=== PATIENT | male | born 1940 | race Caucasian/White ===

== ENCOUNTER 2020-01-28 18:29 | Inpatient (IN) | payer MEDICARE, OTHER ==
[~2020-01-28] VITALS: Ht 175.3 cm; Wt 87.6 kg
--- NOTE | 2020-01-28 18:36 | NUR ---
[id number]
--- NOTE | 2020-01-28 19:12 | NUR ---
Late entry due to pt care. Pt states he would like to wait in his daughters car with her and requests that he be called when his room is ready.
[2020-01-28 19:28] LABS: MICROSCOPIC INDICATED
[2020-01-28 19:33] LABS: CULTURE INDICATED? YES
[2020-01-28 20:31] LABS: INTERNATIONAL NORMALIZED RATIO 1.04 (0.93-1.1)
[2020-01-28 20:32] LABS: ALBUMIN 3.2 g/dL (3.4-5.0); ANION GAP 8 mmol/L (5-15); CALCIUM 9.7 mg/dL (8.5-10.1); CHLORIDE 105 mmol/L (98-107)
[2020-01-28 20:36] LABS: MEAN CORPUSCULAR HEMOGLOBIN 34.4 pg (27.5-34.5); MEAN CORPUSCULAR HGB CONC 34.5 g/dL (33.2-36.2); MEAN CORPUSCULAR VOLUME 99.7 fL (81-97); MEAN PLATELET VOLUME 9.1 fL (7.4-10.4); PLATELET COUNT 315 x10^3/uL (130-400); RED BLOOD COUNT 4.13 x10^6/uL (4.38-5.82); RED CELL DISTRIBUTION WIDTH 16.7 % (9.4-14.8)
[2020-01-28 20:45] LABS: ALANINE AMINOTRANSFERASE 182 U/L (12-78); ALKALINE PHOSPHATASE 723 U/L (45-117)
[2020-01-28 21:04] LABS: CREATININE 0.92 mg/dL (0.7-1.3); TOTAL PROTEIN 6.9 g/dL (6.4-8.2)
[2020-01-28 21:12] LABS: BILIRUBIN,TOTAL 23.5 mg/dL (0.2-1.0)
[2020-01-28 21:14] LABS: MD YES
[2020-01-28 21:16] LABS: ANISOCYTOSIS 1+; EOS#(MANUAL) 0.06 x10^3/uL (0.0-0.4); EOS% (MANUAL) 1 % (1-7); LYMPH#(MANUAL) 1.65 x10^3/uL (1-3.4); LYMPHS% (MANUAL) 27 % (22-44); MONOS#(MANUAL) 0.55 x10^3/uL (0.3-2.7); MONOS% (MANUAL) 9 % (2-9); REACTIVE LYMPHS # (MANUAL) 0.49 x10^3/uL (0-0); SEG#(MANUAL) 3.36 x10^3/uL (1.8-6.8); SEGS% (MANUAL) 55 % (42-75)
--- NOTE | 2020-01-28 21:16 | NUR ---
Patient saw his PCP (Duran) today. He was told there is something wrong with his kidneys. Patient jaundice since Tuesday. Denies N/V/D and ABD pain. A&Ox4. Family member at bedside. NAD. Placed on NIBP and pulse ox. Will continue to monitor.
[2020-01-28 21:17] LABS: TARGET CELLS 1+
[2020-01-28 21:19] LABS: <PLATELET ESTIMATE> ADEQUATE; REACTIVE LYMPHS % (MANUAL) 8 % (0-0)
[2020-01-28] MEDS ORDERED: SIMV20TA19 PO (21:28)
[2020-01-28] MEDS ORDERED: AMLO-150 PO (21:28)
[2020-01-28] MEDS ORDERED: OMEP-110 PO (21:28)
[2020-01-28] MEDS ORDERED: ALLO300T PO (21:28)
[2020-01-28] MEDS ORDERED: LISI30TA4 PO (21:28)
--- NOTE | 2020-01-28 21:33 | NUR ---
Patient to CT.
[2020-01-28] MEDS ORDERED: OMNIPAQUE 350 MG/ML, 100ML BOTTLE ONE (21:45)
--- NOTE | 2020-01-28 21:46 | NUR ---
Patient back from CT. IV started in CT by stress test technician.
[2020-01-28] MEDS ORDERED: SODIUM CHLORIDE 0.9% 1,000 ML IV ONE (22:49)
--- NOTE | 2020-01-28 22:49 | NUR ---
PT RESTING ON GURNEY WITH FAMILY AT BEDSIDE. PT AWARE HE IS TO BE ADMITTED. AWAITING ORDER AND BED PLACEMENT.
[2020-01-29] MEDS ORDERED: D5%-0.45NACL+KCL 20MEQ 1,000 ML IV SCH (00:40)
[2020-01-29] MEDS ORDERED: PROMETHAZINE 25 MG/ML, 1ML IM PRN (01:00)
[2020-01-29] MEDS ORDERED: ONDANSETRON 2MG/ML, 2ML IVPush PRN (01:00)
[2020-01-29] MEDS ORDERED: OXYcodone IR 5MG TABLET PO PRN ×2 (01:00→08:00)
[2020-01-29] MEDS ORDERED: AMPICILLIN/SULBACTAM 3 GM in SODIUM CHLORIDE 0.9% 100 ML IV SCH (01:00)
[2020-01-29] MEDS ORDERED: BISACODYL 10 MG SUPP PR PRN (01:00)
[2020-01-29] MEDS ORDERED: DOCUSATE 100 MG CAPSULE PO PRN (01:00)
[2020-01-29] MEDS ORDERED: POLYETHYLENE GLYCOL 17 GM PACKET PO PRN (01:00)
[2020-01-29] MEDS: ENOXAPARIN 40 MG/0.4 ML SQ SCH ×2 (03:19→22:10)
[2020-01-29 04:44] LABS: CHLORIDE 106 mmol/L (98-107)
[2020-01-29 04:46] LABS: MEAN CORPUSCULAR HEMOGLOBIN 33.7 pg (27.5-34.5); MEAN PLATELET VOLUME 9.7 fL (7.4-10.4); PLATELET COUNT 272 x10^3/uL (130-400); RED BLOOD COUNT 3.79 x10^6/uL (4.38-5.82); RED CELL DISTRIBUTION WIDTH 16.3 % (9.4-14.8)
[2020-01-29 04:51] LABS: ALANINE AMINOTRANSFERASE 141 U/L (12-78); ALBUMIN 2.7 g/dL (3.4-5.0); ALKALINE PHOSPHATASE 627 U/L (45-117); ANION GAP 9 mmol/L (5-15); CALCIUM 9.1 mg/dL (8.5-10.1)
[2020-01-29 04:56] LABS: CREATININE 0.81 mg/dL (0.7-1.3); TOTAL PROTEIN 5.8 g/dL (6.4-8.2)
[2020-01-29 04:57] LABS: BILIRUBIN,TOTAL 24.5 mg/dL (0.2-1.0)
[2020-01-29 05:48] VITALS: BP 155/80
[2020-01-29 05:57] LABS: MD YES
[2020-01-29 06:00] LABS: ANISOCYTOSIS 1+; BASOS#(MANUAL) 0.11 x10^3/uL (0-0.1); BASOS% (MANUAL) 2 % (0-1); EOS#(MANUAL) 0.05 x10^3/uL (0.0-0.4); EOS% (MANUAL) 1 % (1-7); LYMPH#(MANUAL) 1.48 x10^3/uL (1-3.4); LYMPHS% (MANUAL) 28 % (22-44); MONOS#(MANUAL) 0.37 x10^3/uL (0.3-2.7); MONOS% (MANUAL) 7 % (2-9); SEG#(MANUAL) 3.29 x10^3/uL (1.8-6.8); SEGS% (MANUAL) 62 % (42-75); TARGET CELLS 1+
[2020-01-29 06:01] LABS: <PLATELET ESTIMATE> ADEQUATE; <PLT MORPHOLOGY> NORMAL PLT MORPH; OVALOCYTES 1+
[2020-01-29] MEDS ORDERED: ACETAMINOPHEN 325 MG TABLET PO PRN (08:00)
[2020-01-29] MEDS ORDERED: POTASSIUM CHLORIDE 20 MEQ TAB.ER.PRT PO ONE (08:00)
[2020-01-29] MEDS: LACTOBACILLUS CHEW TABLET PO SCH ×3 (08:41→22:10)
[2020-01-29] MEDS: OMEPRAZOLE 20 MG CAPSULE.DR PO SCH (08:41)
[2020-01-29] MEDS: ALLOPURINOL 300 MG TABLET PO SCH (08:41)
[2020-01-29] MEDS: SODIUM CHLORIDE 0.9% 1,000 ML IV SCH ×2 (08:42→22:17)
[2020-01-29 08:45] VITALS: BP 155/80
[2020-01-29] MEDS ORDERED: LISINOPRIL 10 MG TABLET PO SCH (09:00)
[2020-01-29 12:56] VITALS: BP 154/78
[2020-01-29 19:00] VITALS: BP 166/84
[2020-01-30 02:31] VITALS: BP 170/85
[2020-01-30 05:12] LABS: MEAN CORPUSCULAR HEMOGLOBIN 33.6 pg (27.5-34.5); MEAN CORPUSCULAR HGB CONC 33.8 g/dL (33.2-36.2); MEAN CORPUSCULAR VOLUME 99.5 fL (81-97); MEAN PLATELET VOLUME 9.2 fL (7.4-10.4); PLATELET COUNT 288 x10^3/uL (130-400); RED BLOOD COUNT 3.82 x10^6/uL (4.38-5.82); RED CELL DISTRIBUTION WIDTH 16.8 % (9.4-14.8)
[2020-01-30 05:18] LABS: ALANINE AMINOTRANSFERASE 133 U/L (12-78); ALBUMIN 2.4 g/dL (3.4-5.0); ANION GAP 7 mmol/L (5-15); CALCIUM 8.6 mg/dL (8.5-10.1); CHLORIDE 109 mmol/L (98-107)
[2020-01-30 05:19] LABS: CREATININE 0.87 mg/dL (0.7-1.3)
[2020-01-30 05:28] LABS: ALKALINE PHOSPHATASE 638 U/L (45-117)
[2020-01-30 05:30] LABS: BILIRUBIN,TOTAL 23.4 mg/dL (0.2-1.0)
[2020-01-30 05:44] LABS: MD YES
[2020-01-30 05:46] LABS: BASOS#(MANUAL) 0.06 x10^3/uL (0-0.1); BASOS% (MANUAL) 1 % (0-1); EOS#(MANUAL) 0.24 x10^3/uL (0.0-0.4); EOS% (MANUAL) 4 % (1-7); LYMPH#(MANUAL) 1.04 x10^3/uL (1-3.4); LYMPHS% (MANUAL) 17 % (22-44); MONOS#(MANUAL) 0.67 x10^3/uL (0.3-2.7); MONOS% (MANUAL) 11 % (2-9); SEG#(MANUAL) 4.09 x10^3/uL (1.8-6.8); SEGS% (MANUAL) 67 % (42-75)
[2020-01-30 05:48] LABS: ANISOCYTOSIS 1+
[2020-01-30 05:49] LABS: <PLATELET ESTIMATE> ADEQUATE; <PLT MORPHOLOGY> NORMAL PLT MORPH; OVALOCYTES 1+; TARGET CELLS 2+
[2020-01-30 05:49] LABS: TOTAL PROTEIN 5.4 g/dL (6.4-8.2)
[2020-01-30] MEDS ORDERED: MIDAZOLAM 1 MG/ML, 2ML ONE (07:53)
[2020-01-30] MEDS ORDERED: PROPOFOL 10 MG/ML, 50ML ONE (08:25)
[2020-01-30] MEDS ORDERED: CEFOTETAN 2 GM ONE (08:25)
[2020-01-30] MEDS ORDERED: PHENYLEPHRINE 10 MG/ML ONE (08:25)
[2020-01-30] MEDS ORDERED: ROCURONIUM 10MG/ML,5ML ONE (08:50)
[2020-01-30] MEDS ORDERED: DEXAMETHASONE 4 MG/ML, 1ML ONE (08:50)
[2020-01-30] MEDS ORDERED: SUCCINYLCHOLINE 20 MG/ML, 10ML ONE (08:50)
[2020-01-30] MEDS ORDERED: GLYCOPYRROLATE 0.2MG/1ML, 5ML ONE (08:50)
[2020-01-30] MEDS ORDERED: ONDANSETRON 2MG/ML, 2ML ONE (08:50)
[2020-01-30] MEDS ORDERED: PROPOFOL 10 MG/ML, 20ML ONE (08:50)
[2020-01-30] MEDS ORDERED: PROMETHAZINE 25 MG/ML, 1ML IV PRN (09:00)
[2020-01-30] MEDS ORDERED: MORPHINE SULFATE 4 MG/ML, 1ML IVPush PRN (09:00)
[2020-01-30] MEDS ORDERED: FENTANYL PF 100 MCG/2ML IV PRN (09:00)
[2020-01-30] MEDS ORDERED: MEPERIDINE/PF 25MG/ML,1ML IVPush PRN (09:00)
[2020-01-30] MEDS ORDERED: CEFOTETAN PMX 2GM/50ML 50 ML ONE (09:02)
[2020-01-30 10:35] VITALS: BP 139/78
[2020-01-30] MEDS: OMEPRAZOLE 20 MG CAPSULE.DR PO SCH (12:12)
[2020-01-30] MEDS: ALLOPURINOL 300 MG TABLET PO SCH (12:12)
[2020-01-30] MEDS: LACTOBACILLUS CHEW TABLET PO SCH ×3 (12:12→20:03)
[2020-01-30] MEDS: CEFTRIAXONE PMX 2GM/50ML 50 ML IVPB SCH (12:14)
[2020-01-30 13:58] VITALS: BP 132/72
[2020-01-30 19:43] VITALS: BP 166/86
[2020-01-30] MEDS: SODIUM CHLORIDE 0.9% 1,000 ML IV SCH (19:50)
[2020-01-30] MEDS: LISINOPRIL 10 MG TABLET PO SCH (20:02)
[2020-01-30] MEDS: AMLODIPINE 2.5 MG TABLET PO SCH (20:03)
[2020-01-31 02:00] VITALS: BP 155/74
[2020-01-31 04:53] LABS: MEAN CORPUSCULAR HEMOGLOBIN 33.6 pg (27.5-34.5); MEAN CORPUSCULAR HGB CONC 33.6 g/dL (33.2-36.2); MEAN PLATELET VOLUME 9.3 fL (7.4-10.4); PLATELET COUNT 310 x10^3/uL (130-400); RED BLOOD COUNT 3.88 x10^6/uL (4.38-5.82); RED CELL DISTRIBUTION WIDTH 16.8 % (9.4-14.8)
[2020-01-31 05:02] LABS: ALBUMIN 2.5 g/dL (3.4-5.0); ANION GAP 7 mmol/L (5-15); CALCIUM 8.9 mg/dL (8.5-10.1); CHLORIDE 106 mmol/L (98-107)
[2020-01-31 05:07] LABS: ALANINE AMINOTRANSFERASE 111 U/L (12-78); ALKALINE PHOSPHATASE 608 U/L (45-117); BILIRUBIN,TOTAL 13.5 mg/dL (0.2-1.0); CREATININE 0.82 mg/dL (0.7-1.3)
[2020-01-31 05:41] LABS: MD YES
[2020-01-31 05:42] LABS: ANISOCYTOSIS 1+; BAND#(MANUAL) 0.17 x10^3/uL; BANDS%(MANUAL) 2 % (0-7); EOS#(MANUAL) 0.17 x10^3/uL (0.0-0.4); EOS% (MANUAL) 2 % (1-7); LYMPH#(MANUAL) 1.33 x10^3/uL (1-3.4); LYMPHS% (MANUAL) 16 % (22-44); METAMYELOCYTES# (MANUAL) 0.08 x10^3/uL (0-0); METAMYELOCYTES% (MANUAL) 1 % (0-1); MONOS#(MANUAL) 0.42 x10^3/uL (0.3-2.7); MONOS% (MANUAL) 5 % (2-9); OVALOCYTES 1+; SEG#(MANUAL) 6.14 x10^3/uL (1.8-6.8); SEGS% (MANUAL) 74 % (42-75); TARGET CELLS 2+
[2020-01-31 05:43] LABS: <PLATELET ESTIMATE> ADEQUATE; <PLT MORPHOLOGY> NORMAL PLT MORPH; HYPOCHROMIA 1+
[2020-01-31] MEDS: CEFTRIAXONE PMX 2GM/50ML 50 ML IVPB SCH (06:46)
[2020-01-31 08:14] VITALS: BP 153/74
[2020-01-31] MEDS ORDERED: EPHEDRINE 50 MG/ML, 1ML ONE (08:40)
[2020-01-31] MEDS: LACTOBACILLUS CHEW TABLET PO SCH ×3 (09:00→20:47)
[2020-01-31] MEDS ORDERED: PROPOFOL 10 MG/ML, 20ML ONE ×4 (09:27)
[2020-01-31] MEDS ORDERED: PROPOFOL 50 ML ONE (10:00)
[2020-01-31] MEDS ORDERED: hydrALAzine 20 MG/ML, 1ML IV PRN (11:00)
[2020-01-31] MEDS ORDERED: PROMETHAZINE 25 MG SUPP PR PRN (11:00)
[2020-01-31] MEDS ORDERED: ONDANSETRON 2MG/ML, 2ML IV PRN (11:00)
[2020-01-31] MEDS ORDERED: OXYcodone 5 MG/5 ML ORAL.SOL UDC PO PRN (11:00)
[2020-01-31] MEDS ORDERED: ONDANSETRON ODT 8 MG PO PRN (11:00)
[2020-01-31] MEDS ORDERED: HYDROmorphone 2 MG/ML, 1ML IVPush PRN (11:00)
[2020-01-31] MEDS ORDERED: PROMETHAZINE 25 MG/ML, 1ML IM PRN (11:00)
[2020-01-31] MEDS ORDERED: MIDAZOLAM 1 MG/ML, 2ML IV PRN (11:00)
[2020-01-31] MEDS ORDERED: EPHEDRINE 50 MG/ML, 1ML IVPush PRN (11:00)
[2020-01-31] MEDS ORDERED: DIAZEPAM 5 MG/ML, 2ML IVPush PRN (11:00)
[2020-01-31] MEDS ORDERED: MEPERIDINE/PF 25MG/ML,1ML IVPush PRN (11:00)
[2020-01-31] MEDS ORDERED: FENTANYL PF 100 MCG/2ML IV PRN (11:00)
[2020-01-31] MEDS ORDERED: HALOPERIDOL 5 MG/ML IV PRN (11:00)
[2020-01-31] MEDS ORDERED: LABETALOL 5MG/ML, 20ML IV PRN (11:00)
[2020-01-31] MEDS ORDERED: ALBUTEROL SULFATE 2.5 MG/3 ML NPPB PRN (11:00)
[2020-01-31] MEDS: OMEPRAZOLE 20 MG CAPSULE.DR PO SCH (13:01)
[2020-01-31] MEDS: ALLOPURINOL 300 MG TABLET PO SCH (13:02)
[2020-01-31 13:05] VITALS: BP 152/85
[2020-01-31 20:22] VITALS: BP 170/79
[2020-01-31] MEDS: LISINOPRIL 10 MG TABLET PO SCH (20:48)
[2020-01-31] MEDS: AMLODIPINE 2.5 MG TABLET PO SCH (20:48)
[2020-01-31 21:52] VITALS: BP 168/87
[2020-02-01 01:42] VITALS: BP 156/77
[2020-02-01 05:12] LABS: CHLORIDE 106 mmol/L (98-107)
[2020-02-01 05:18] LABS: ALANINE AMINOTRANSFERASE 85 U/L (12-78); ALBUMIN 2.4 g/dL (3.4-5.0); ALKALINE PHOSPHATASE 498 U/L (45-117); ANION GAP 5 mmol/L (5-15); BILIRUBIN,TOTAL 9.2 mg/dL (0.2-1.0); CALCIUM 8.8 mg/dL (8.5-10.1); CREATININE 0.76 mg/dL (0.7-1.3); TOTAL PROTEIN 5.8 g/dL (6.4-8.2)
[2020-02-01] MEDS: CEFTRIAXONE PMX 2GM/50ML 50 ML IVPB SCH (05:34)
[2020-02-01 07:30] VITALS: BP 178/91
[2020-02-01] MEDS: LACTOBACILLUS CHEW TABLET PO SCH (07:59)
[2020-02-01] MEDS: ALLOPURINOL 300 MG TABLET PO SCH (07:59)
[2020-02-01] MEDS: OMEPRAZOLE 20 MG CAPSULE.DR PO SCH (07:59)
[2020-02-01] MEDS: SODIUM CHLORIDE 0.9% 1,000 ML IV SCH (08:00)
[2020-02-01] MEDS ORDERED: MAGNESIUM SULFATE PMX 2GM/50ML 50 ML IV ONE (08:00)
[2020-02-01] MEDS ORDERED: POTASSIUM CHLORIDE 20 MEQ TAB.ER.PRT PO ONE (08:00)
[2020-02-01] MEDS ORDERED: ACID1TAB7 PO (10:17)
[2020-02-01] MEDS ORDERED: SENN-193 PO (10:17)
[2020-02-01] MEDS ORDERED: HYDR-3341 PO (10:17)
[2020-02-01] MEDS ORDERED: BISACODYL 10 MG SUPP PR SCH (10:30)
[2020-02-01] MEDS ORDERED: MAGNESIUM CITRATE 300ML ORAL SOL PO ONE (10:30)
[2020-02-01 13:01] VITALS: BP 145/76
[2020-03-17] MEDS ORDERED: LEVO750T26 PO (13:58)
== END 2020-02-01 14:12 | disposition home or self-care (01) | DRG 435 ==
LOC: ED 22:19 → EDIP 23:29 → 4NW 01-29 01:43
PROVIDERS: ADMIT Internal Medicine; ATTEND Internal Medicine
PROC: 0FD98ZX Extraction of Common Bile Duct, Via Natural or Artificial Opening Endoscopic, Diagnostic (ICD-10-PCS; 2020-01-30)
PROC: 0F798DZ Dilation of Common Bile Duct with Intraluminal Device, Via Natural or Artificial Opening Endoscopic (ICD-10-PCS; principal; 2020-01-30 08:00)
PROC: 0FBG8ZX Excision of Pancreas, Via Natural or Artificial Opening Endoscopic, Diagnostic (ICD-10-PCS; 2020-01-31)
PROC: BF47ZZZ Ultrasonography of Pancreas (ICD-10-PCS; 2020-01-31)
DX: C25.9 Malignant neoplasm of pancreas, unspecified (principal); K83.1 Obstruction of bile duct; E80.6 Other disorders of bilirubin metabolism; E11.9 Type 2 diabetes mellitus without complications; E78.00 Pure hypercholesterolemia, unspecified; E78.5 Hyperlipidemia, unspecified; E87.6 Hypokalemia; G47.00 Insomnia, unspecified; E88.81 Metabolic syndrome and other insulin resistance; I10 Essential (primary) hypertension; K21.9 Gastro-esophageal reflux disease without esophagitis; K40.90 Unilateral inguinal hernia, without obstruction or gangrene, not specified as recurrent; K57.30 Diverticulosis of large intestine without perforation or abscess without bleeding; K59.00 Constipation, unspecified; M10.9 Gout, unspecified; Z79.899 Other long term (current) drug therapy; N28.1 Cyst of kidney, acquired; Z87.891 Personal history of nicotine dependence; N20.0 Calculus of kidney
CPT/HCPCS: 36415; 74177; 74328; 76700; 80053; 81001; 82105; 82378; 83036; 83690; 83735; 84100; 85025; 85610; 86301; 87086; 88112; 88172; 88173; 88177; 88307; 93005; G0378; J0295; J0696; J1100; J1650; J2250; J2405; J2704; Q9967; C1769; C1894; C2625; J0330; J2370; J3475; J3480; J3490; J7030

== ENCOUNTER 2020-02-21 07:02 | Day surgery (SDC) | payer MEDICARE ==
[~2020-02-21] VITALS: Ht 162.6 cm; Wt 82.4 kg
[~2020-02-21 07:02] MED LIST: ACID1TAB7 PO; ALLO300T PO; AMLO-150 PO; HYDR-3341 PO; LISI30TA4 PO; OMEP-110 PO; SENN-193 PO; SIMV20TA19 PO
[2020-02-21 07:33] VITALS: BP 153/83
[2020-02-21] MEDS ORDERED: CEFAZOLIN PMX 1GM/50ML 50 ML IV ONE (08:00)
[2020-02-21] MEDS ORDERED: SODIUM CHLORIDE 0.9% 1,000 ML IV SCH (08:00)
[2020-02-21] MEDS ORDERED: LIDOCAINE 1%, 20ML ONE (08:32)
[2020-02-21] MEDS ORDERED: MIDAZOLAM 1 MG/ML, 5ML ONE (08:58)
[2020-02-21] MEDS ORDERED: FENTANYL PF 100 MCG/2ML ONE ×2 (08:58)
[2020-02-21] MEDS ORDERED: FLUMAZENIL 0.1 MG/1 ML, 5ML ONE (08:58)
[2020-02-21] MEDS ORDERED: NALOXONE 1 MG/ML, 2ML ONE (08:59)
[2020-03-17] MEDS ORDERED: LEVO750T26 PO (13:58)
== END 2020-02-21 11:45 | disposition home or self-care (01) ==
LOC: OUT 07:02
PROVIDERS: ATTEND Internal Medicine Hematology & Oncology
DX: C25.0 Malignant neoplasm of head of pancreas (principal); E11.9 Type 2 diabetes mellitus without complications; I10 Essential (primary) hypertension; Z79.899 Other long term (current) drug therapy; Z72.89 Other problems related to lifestyle; Z87.891 Personal history of nicotine dependence; Z85.828 Personal history of other malignant neoplasm of skin
CPT/HCPCS: 36561; 76937; 77001; 99156; 99157; C1788; J0690; J1642; J2250; J3010; J7030; J2310

== ENCOUNTER 2020-02-26 12:31 | Outpatient (CLI) | payer MEDICARE ==
[2020-03-17] MEDS ORDERED: LEVO750T26 PO (13:58)
== END 2020-02-26 23:59 | disposition home or self-care (01) ==
LOC: PETCFH 12:31
PROVIDERS: ATTEND Internal Medicine Hematology & Oncology
DX: C25.0 Malignant neoplasm of head of pancreas (principal); K57.30 Diverticulosis of large intestine without perforation or abscess without bleeding; I70.0 Atherosclerosis of aorta; K86.89 Other specified diseases of pancreas
CPT/HCPCS: 78815; A9552